=== PATIENT | female | born 1975 | race Caucasian/White ===

== ENCOUNTER 2016-10-25 15:54 | Emergency (ER) | payer OTHER ==
[~2016-10-25] VITALS: Ht 162.6 cm; Wt 52.3 kg
[~2016-10-25 15:54] MED LIST: HYDR-4003 PO; ONDA8TAB10 PO
[2016-10-25 15:59] VITALS: BP 158/117; PULSE 138; RESP 18; O2SAT 98
--- NOTE | 2016-10-25 17:20 | ED.REPORT ---
HPI-Chest Pain 40 and Over Date of Service Oct 25, 2016 ED Provider: Mikey Killian MD 41 year old female with a history of HTN and alcohol abuse presents to the ER complaining of chest pain and nausea onset this morning upon awakening around 07 :00. Pain is described as "heartburn, and pressure" in character, and radiated upward into her throat. Associated symptom of throat swelling, and "clammy hands and feet". Patient consumes 3 alcoholic drinks daily and takes ibuprofen with regularity. No history of coronary artery disease. Nursing Notes Stated Complaint: CHEST PAIN, THRAOT SWELLING,NAUSEA Chief Complaint: Chest Pain Nursing Notes Reviewed: Yes Allergies: Coded Allergies: No Known Allergies (Unverified , 07/10/16) Scheduled Omeprazole (Omeprazole) 20 Mg Tablet.dr 20 MG PO BID Scheduled PRN Hydrocodone-Acetaminophen 5-325 mg (Hydrocodone-Acetaminophen 5-325 mg) 1 Each Tablet 1 TABLET PO BID PRN PRN For Pain Ondansetron ODT (Ondansetron ODT) 8 Mg Tab.rapdis 4-8 MG PO QID PRN PRN For Nausea Ondansetron ODT (Zofran ODT) 4 Mg Tablet 4 MG PO Q4H PRN PRN For Nausea General Time Seen by MD: 17:12 Chief Complaint Chest pain Hx Obtained From: Patient Arrived By: Walk-in Sudden in Onset?: No Onset Occurred: 9 - 12 hours ago Symptom Duration: Since onset Location: : Substernal Quality: Burning, Pressure Severity: Current: Moderate Severity: Maximum: Moderate Associated with: Reports: Diaphoresis (hands and feet), Nausea Additional Notes: Throat swelling Pertinent Negative: Pt denies other symptoms Context Related History: Reports: Hypertension Similar Sx Previous: No Past Medical History Past Medical History EtOH abuse Reports: Hypertension Past Surgical History None reported. Smoking History Never Smoker Social History Alcohol Use: 3-5 per day Drug Use: Denies drug use Other Social History: Good social support, Local resident Ambulatory Status Independent Review of Systems Constitutional: Denies: Chills, Fever Respiratory: Denies: Non-productive cough, Shortness of breath Cardiovascular: Reports: Chest pain GI: Reports: Nausea, Denies: Vomiting Musculoskeletal: Denies: Extremity pain, Neck pain Skin: Reports Diaphoresis (Hands and feet) Complete sys rev & neg: except as marked. Ears / Nose / Throat: Reports: Throat swelling Physical Exam Initial Vital Signs Vital Signs (First) Date Time Temp Pulse Resp B/P Pulse Ox O2 Delivery O2 Flow Rate FiO2 10/25/16 15:59 36.5 138 18 158/117 98 Room Air Initial VS: Reviewed Head / Eyes: Atraumatic, Normocephalic Extremities: Vascular intact, Neuro intact, No swelling, No tenderness Skin: Warm, Dry, No cyanosis Neurologic: Alert, Oriented, Nonfocal General/Constitutional: Awake, Alert, Well developed, Well nourished Respiratory / Chest: Breath sounds NL, Breath sounds = bilat, No respiratory distress, No rales, No rhonchi, No wheezing, No stridor Cardiovascular: Heart rate NL, Regular rhythm, Heart sounds NL, No murmurs, Peripheral circulation NL, Pulses = bilaterally, No gross BP differential Abdomen: Soft, No guarding, No rebound, No distention Tenderness/Guarding/Rebound: Positive: Tender epigastric Tolerates firm palpation in all 4 quadrants. Neck: Supple, Full range of motion, Non-tender, Thyroid NL, No tracheal deviation Lower Extremity / Pelvis / MS: Full range of motion, No swelling, Non-tender, Neurologic intact, Vascular intact No palpable cords. ENT: Airway patent, Mucous membranes moist, Pharynx NL, No peritonsillar abscess, Gums/dentition NL Interpretation & Diagnostics Lab Results Interpretation Result Diagram: 10/25/16 1737 10/25/16 1636 Test 10/25/16 16:36 10/25/16 17:37 Sodium Level 136mEq/L (134-144) Potassium Level 3.6mEq/L (3.5-5.2) Chloride Level 92mEq/L (97-108) Carbon Dioxide Level 20mmol/L (18-29) Blood Urea Nitrogen 10mg/dL (6-24) Creatinine 0.42mg/dL (0.57-1.00) Estimat Glomerular Filtration Rate 236mL/min (>59) Glucose Level 102mg/dL (60-99) Calcium Level 8.7mg/dL (8.5-10.1) Magnesium Level 1.4mg/dL (1.6-2.6) Total Bilirubin 1.2mg/dL (0.0-1.2) Aspartate Amino Transf (AST/SGOT) 245U/L (0-50) Alanine Aminotransferase (ALT/SGPT) 59U/L (0-32) Alkaline Phosphatase 73U/L (25-150) Troponin T < 0.010ug/L (0.0-0.011) Total Protein 7.1g/dL (6.4-8.4) Albumin 4.1g/dL (3.4-5.0) White Blood Count 6.1th/mm3 (3.8-10.1) Red Blood Count 3.88mil/mm3 (3.90-5.20) Hemoglobin 12.6g/dL (12.0-15.6) Hematocrit 36.9% (35.0-46.0) Mean Corpuscular Volume 95.1fL (81-100) Mean Corpuscular Hemoglobin 32.5pg (27.0-35.0) Mean Corpuscular Hemoglobin Concent 34.1% (32.0-37.0) Red Cell Distribution Width 16.7% (12.3-15.4) Platelet Count 126bil/L (150-400) Neutrophils (%) (Auto) 72.6% (40-74) Lymphocytes (%) (Auto) 17.8% (14-46) Monocytes (%) (Auto) 9.2% (4-12) Eosinophils (%) (Auto) 0% (0-5) Basophils (%) (Auto) 0.2% (0-3) ECG Interpretation ECG Interpretation: Sinus tachycardia, rate 100 Normal axis Normal intervals No ST segment changes No acute T wave abnormalities Abnormal R wave progression When compared to ECG 08/15/2016 no acute changes present. Time: 17:24 Interpreted by: ED physician X-Ray Chest Interpretation Chest Xray Interpretation: IMPRESSION: No acute disease. Dictated by: Reinaldo Wood M.D. on 10/25/2016 at 17:34 Approved by: Reinaldo Wood M.D. on 10/25/2016 at 17:34 View: Portable, 1 view Interpretation / Wet Read by: Interpret - Radiologist Re-Eval/Medical Decision Med Decision/Clinical Course 41 year old female with a history of HTN and alcohol abuse presents to the ER complaining of chest pain and nausea onset this morning upon awakening around 07 :00. Pain is described as "heartburn, and pressure" in character, and radiated upward into her throat. Associated symptom of throat swelling, and "clammy hands and feet". Patient consumes 3 alcoholic drinks daily and takes ibuprofen with regularity. Here in the emergency department the patient is afebrile stable vital signs and examination as above. Patient received the below medications: GI cocktail Zofran Thereafter patient reported complete resolution of her symptoms. CXR: Obtained, reviewed and interpreted by myself shows no evidence of acute infiltrates, effusions or pneumothorax. Cardiac and mediastinal silhouette normal. No bony or soft tissue abnormalities. EKG was obtained and interpreted by myself as documented above. Laboratory studies notable as below: CBC normal CMP Good kidney function Mild hypomagnesemia Mildly elevated transaminases consistent with alcoholism Initial screening tests for acute coronary syndrome are reassuring. History and risk factors not suggestive of acute coronary syndrome or OK. No evidence of DVT on physical examination and presentation not suggestive of pulmonary embolism. No evidence of pneumonia or pneumothorax. Overall presentation consistent with GERD/gastritis in the setting of alcohol abuse and NSAID use. I have discussed with the patient dietary and lifestyle modifications. She will stop using nonsteroidal anti-inflammatory drugs. She will follow-up with her primary care physician. She has been started on omeprazole and Zofran for nausea. Follow up and return precautions were acute in detail and she was discharged in good condition. Source of Hx: Old records Time of Eval: 18:02 Re-Evaluation/Progress Note: Completed physical examination. Discussed plan to discharge pending laboratory results. Patient is amenable to the plan. Return precautions given. All other questions addressed. Counseled Regarding: Diagnosis, Lab results, Need for follow-up, When/why to return to ED Discharge & Departure Primary Impression: GERD (gastroesophageal reflux disease) Esophagitis presence: with esophagitis Qualified Code: K21.0 - Gastro- esophageal reflux disease with esophagitis Additional Impressions: Gastritis Alcohol abuse Adverse effect of other nonsteroidal anti-inflammatory drugs [nsaid], initial encounter Disposition: Home Discharge Condition All VS Reviewed: Yes Condition: Stable Additional Instructions: Thank you for seeking care at emergency room. It is difficult for us to make definitive diagnoses in the ED but we believe that you are experiencing acid reflux. Our primary goal today in the ED was to evaluate you for any life-threatening conditions. Your evaluation was reassuring. You will be discharged with a prescription for omeprazole, please take as directed. We recommend you stop drinking and to not take any NSAID type medications like ibuprofen. You should follow-up with your primary doctor in the next week. You should return to the ED immediately if you develop any recurrent symptoms, fevers, vomiting, cough, shortness of breath, chest pain, lightheadedness, weakness or any other concerning signs or symptoms. Thank you for letting us partake in your care today. Referrals: Teodoro Horton MD (PCP) [place] Attestation Portions of this note were transcribed by Susan Demarco. I, Dr. Killian, personally performed the history, physical exam and medical decision-making; I reviewed and confirmed the accuracy of the information in the transcribed note. Signed by: Wilman Simeon, 10/25/2016 and 18:34 copies to: Teodoro Horton MD, Beck O MD Oct 25, 2016 17:20 SUSAN DEMARCO Oct 25, 2016 17:26
--- NOTE | 2016-10-25 17:35 | DRSVH ---
PROCEDURE: X-RAY CHEST ONE VIEW, PORTABLE ([id number]) INDICATIONS: CHEST PAIN TECHNIQUE: One view of the chest was acquired. COMPARISON: [facility], CR, XR CHEST 1VW (PORTABLE), 07/20/2016, 16:33. FINDINGS: Surgical changes and devices: None. Lungs and pleura: No pleural effusions or pneumothorax. Lungs are clear. Mediastinum: Mediastinal contours appear normal. Heart size is normal. Bones and chest wall: No suspicious bony lesions. Overlying soft tissues appear unremarkable. IMPRESSION: No acute disease. Dictated by: Reinaldo Wood M.D. on 10/25/2016 at 17:34 Approved by: Reinaldo Wood M.D. on 10/25/2016 at 17:34
[2016-10-25 17:37] VITALS: BP 137/94; PULSE 106; RESP 16; O2SAT 98
[2016-10-25 17:51] LABS: BASOPHILS % (AUTO) 0.2 % (0-3); EOSINOPHILS % (AUTO) 0 % (0-5); MONOCYTES % (AUTO) 9.2 % (4-12); Mean Corpuscular Hemoglobin 32.5 pg (27.0-35.0); Mean Corpuscular Volume 95.1 fL (81-100); NEUTROPHILS % (AUTO) 72.6 % (40-74); Platelet Count 126 bil/L (150-400)
[2016-10-25] MEDS ORDERED: LidocaineVisc 2%:Antacid 1:1 10 mL Syringe PO ONE (18:00)
[2016-10-25] MEDS ORDERED: OMEP20TA86 PO (18:01)
[2016-10-25 18:30] LABS: Magnesium 1.4 mg/dL (1.6-2.6)
[2016-10-25 18:32] LABS: TROPONIN T < 0.010 ug/L (0.0-0.011)
[2016-10-25] MEDS ORDERED: ONDA4TAB9 PO (18:34)
[2016-10-25] MEDS ORDERED: Ondansetron 2 mg/mL 2 mL Inj IVPUSH ONE (18:35)
[2016-10-25 19:02] VITALS: BP 134/76; PULSE 113; RESP 13; O2SAT 97
== END 2016-10-25 19:03 | disposition home or self-care (01) ==
LOC: SED 15:54
DX: K21.0 Gastro-esophageal reflux disease with esophagitis (principal); K29.70 Gastritis, unspecified, without bleeding; T39.315A Adverse effect of propionic acid derivatives, initial encounter; X58.XXXA Exposure to other specified factors, initial encounter; Y92.9 Unspecified place or not applicable; Y93.9 Activity, unspecified; Y99.9 Unspecified external cause status; F10.20 Alcohol dependence, uncomplicated; I10 Essential (primary) hypertension
CPT/HCPCS: 71010; 80053; 83735; 84484; 85025; 93005; 96374; 99285; J2405